=== PATIENT | female | born 1950 | race Caucasian/White ===

== ENCOUNTER → 2016-09-25 | Outpatient (CLI) | payer MEDICARE ==
[2016-09-25 13:12] LABS: HEMOGLOBIN 13.2 gm/dl (12.3-15.3); RED BLOOD COUNT 4.26 M/UL (4.00-5.10); WHITE BLOOD COUNT 13.4 K/UL (4.5-11.0)
[2016-09-25 13:32] LABS: BUN/CREATININE RATIO 25 (0-10)
== END ==
LOC: LAB 12:33
PROVIDERS: Nurse Practitioner Family
DX: R39.15 Urgency of urination (principal); R31.0 Gross hematuria; R10.9 Unspecified abdominal pain; R39.11 Hesitancy of micturition
CPT/HCPCS: 36415; 80048; 85025; 87086

== ENCOUNTER → 2016-09-25 | Outpatient (CLI) | payer OTHER | LOC: KOH-I 11:42 | DX: R31.0 Gross hematuria (principal); R39.11 Hesitancy of micturition; R10.9 Unspecified abdominal pain; N13.2 Hydronephrosis with renal and ureteral calculous obstruction | CPT/HCPCS: 74176 ==

== ENCOUNTER → 2021-07-18 | Outpatient (CLI) | payer MEDICARE ==
[~2021-07-18] VITALS: Ht 166.4 cm; Wt 72.6 kg
== END ==
LOC: EROP 10:56
DX: Z23 Encounter for immunization (principal); U07.1 COVID-19; I10 Essential (primary) hypertension
CPT/HCPCS: M0247; Q0247